=== PATIENT | male | born 1995 | race Hispanic/Latino ===

== ENCOUNTER 2023-12-20 20:36 | Emergency (ER) | payer OTHER ==
[~2023-12-20] VITALS: Ht 167.6 cm; Wt 72.6 kg
[2023-12-21] MEDS ORDERED: IBUP-2070 PO (00:23)
[2023-12-21 00:43] VITALS: BP 112/62; PULSE 79; RESP 18; O2SAT 98
== END 2023-12-21 00:49 ==
LOC: EDH 20:36
DX: S52.501A Unspecified fracture of the lower end of right radius, initial encounter for closed fracture (principal); S02.2XXA Fracture of nasal bones, initial encounter for closed fracture; S00.211A Abrasion of right eyelid and periocular area, initial encounter; H11.31 Conjunctival hemorrhage, right eye; F31.9 Bipolar disorder, unspecified; F20.9 Schizophrenia, unspecified; Y04.0XXA Assault by unarmed brawl or fight, initial encounter; Y93.89 Activity, other specified; Y92.89 Other specified places as the place of occurrence of the external cause; Y99.8 Other external cause status
CPT/HCPCS: 29125; 70450; 70486; 72125; 73090; 73100